=== PATIENT | female | born 1945 | race Asian ===

== ENCOUNTER 2016-05-01 09:15 | Emergency (ER) | payer BC, MEDICARE ==
[~2016-05-01] VITALS: Ht 154.9 cm; Wt 65.9 kg
[2016-05-01] MEDS ORDERED: PRAV20TA4 PO (09:29)
[2016-05-01 09:45] LABS: APPEARANCE,URINE CLOUDY (CLEAR); GLUCOSE, URINE (UA) NEGATIVE (NEGATIVE); KETONES,URINE NEGATIVE (NEGATIVE); LEUKOCYTE ESTERASE ,URINE LARGE (NEGATIVE); OCCULT BLOOD,URINE NEGATIVE (NEGATIVE); PH,URINE 6.5 (5.0-8.0); PROTEIN,URINE NEGATIVE (NEGATIVE)
[2016-05-01 09:47] LABS: ADD UA MICROSCOPIC YES
[2016-05-01 09:55] LABS: RBC,URINE None Seen /HPF (0-2); SQUAMOUS EPITHELIAL CELL,UR Few /LPF (None Seen)
[2016-05-01] MEDS ORDERED: LIDOCAINE HCL/PF 1% 2 ML VIAL IM ONE (10:45)
[2016-05-01] MEDS ORDERED: HYDROCODONE/ACETAMINOPHEN 10-325 MG TABLET PO ONE (10:45)
[2016-05-01] MEDS ORDERED: CefTRIAXone SODIUM 1 GM/VIAL IM ONE (10:45)
[2016-05-01 11:28] VITALS: BP 156/85
== END 2016-05-01 11:44 | disposition home or self-care (01) ==
LOC: EMS 09:17
DX: S33.5XXA Sprain of ligaments of lumbar spine, initial encounter (principal); N39.0 Urinary tract infection, site not specified; M62.838 Other muscle spasm; E78.00 Pure hypercholesterolemia, unspecified; X58.XXXA Exposure to other specified factors, initial encounter; Y93.89 Activity, other specified; Y92.89 Other specified places as the place of occurrence of the external cause; Y99.8 Other external cause status
CPT/HCPCS: 81001; 87077; 87086; 87186; 96372; 99284; J0696; J3490